=== PATIENT | male | born 1980 ===

== ENCOUNTER 2016-11-20 15:41 | Emergency (ER) | payer OTHER ==
[2016-11-20 15:51] VITALS: TEMP 98; O2SAT 100
[2016-11-20] MEDS ORDERED: Sodium Chloride 0.9% 1,000 ML IV ONE (16:05)
--- NOTE | 2016-11-20 16:06 | C.PDOC ---
History Of Present Illness Patient is a 36 year old male who presents to the ER with a complaint of a sharp right flank pain that began 2 hours [employer]. Patient reports having hematuria , 1 episode of nausea and vomiting. Patient admits to having kidney stones in the past. Denies dysuria or fever. Time Seen by Provider: 11/20/16 15:53 Chief Complaint (Nursing): Abdominal Pain History Per: Patient History/Exam Limitations: no limitations Onset/Duration Of Symptoms: Hrs (2) Current Symptoms Are (Timing): Still Present Location Of Pain/Discomfort: Other (Right flank) Radiation Of Pain To:: None Quality Of Discomfort: Unable To Describe Associated Symptoms: Nausea, Vomiting, Urinary Symptoms ((+) Hematuria. (-) Dysuria.). denies: Fever Exacerbating Factors: None Alleviating Factors: None Recent travel outside of the [place]: No Past Medical History Reviewed: Historical Data, Nursing Documentation, Vital Signs Vital Signs: Last Vital Signs Temp 98.0 F 11/20/16 15:45 Pulse 80 11/20/16 17:47 Resp 16 11/20/16 17:47 BP 110/75 11/20/16 17:47 Pulse Ox 100 11/20/16 18:18 - Medical History PMH: No Chronic Diseases Surgical History: No Surg Hx Family History: States: Unknown Family Hx - Social History Hx Alcohol Use: Yes Hx Substance Use: No - Immunization History Hx Tetanus Toxoid Vaccination: (unk) Hx Influenza Vaccination: Yes Hx Pneumococcal Vaccination: No Review Of Systems Except As Marked, All Systems Reviewed And Found Negative. Constitutional: Negative for: Fever Gastrointestinal: Positive for: Nausea, Vomiting Genitourinary: Positive for: Hematuria. Negative for: Dysuria Musculoskeletal: Positive for: Back Pain (Right flank) Physical Exam - Physical Exam Appears: Non-toxic, No Acute Distress Skin: Normal Color, Warm, Dry Head: Atraumatic, Normacephalic Oral Mucosa: Moist Chest: Symmetrical, No Tenderness Cardiovascular: Rhythm Regular, No Murmur Respiratory: Normal Breath Sounds, No Rales, No Rhonchi, No Wheezing Gastrointestinal/Abdominal: Bowel Sounds, Soft, Tenderness (Right sided), No Distention, No Guarding Back: CVA Tenderness (Right), Other (Right flank tenderness) Extremity: Normal ROM Neurological/Psych: Oriented x3, Normal Speech, Normal Cognition ED Course And Treatment - Laboratory Results Result Diagrams: 11/20/16 16:11 11/20/16 16:11 Lab Interpretation: Abnormal (leukocytosis, hyperglycemia) O2 Sat by Pulse Oximetry: 100 (Room air) Pulse Ox Interpretation: Normal - CT Scan/US CT abd/pel Other Rad Studies (CT/US): Read By Radiologist, Radiology Report Reviewed CT/US Interpretation: PROCEDURE: CT Abdomen and Pelvis without intravenous contrast. HISTORY: right flank pain. COMPARISON: None. TECHNIQUE: Without contrast.. Contrast Dose: 0. Radiation dose: Total exam DLP = 268.77 mGy-cm. This CT exam was performed using one or more of the following dose reduction techniques: Automated exposure control, adjustment of the mA and/or kV according to patient size, and/or use of iterative reconstruction technique. FINDINGS: LOWER THORAX: Unremarkable. LIVER: Unremarkable. No gross lesion or ductal dilatation. GALLBLADDER AND BILE DUCTS: Unremarkable. PANCREAS: Unremarkable. No gross lesion or ductal dilatation. SPLEEN: Unremarkable. ADRENALS: Unremarkable. No mass. KIDNEYS AND URETERS: Mild right hydroureteronephrosis. Mild right periureteric stranding. 4 mm calculus at right ureterovesical junction. No left hydronephrosis or hydroureter. 2 mm nonobstructing right upper pole renal calculus. 5 mm nonobstructing left upper pole renal calculus. No renal mass. VASCULATURE: Unremarkable. No aortic aneurysm. BOWEL: Unremarkable. No obstruction. No gross mural thickening. APPENDIX: Unremarkable. Normal appendix. PERITONEUM: Unremarkable. No free fluid. No free air. LYMPH NODES: Unremarkable. No enlarged lymph nodes. BLADDER: Nondistended. REPRODUCTIVE: Normal prostate. BONES: No acute fracture. OTHER FINDINGS: None. IMPRESSION: 4 mm obstructing calculus at right ureterovesical junction with mild right hydroureteronephrosis. Small nonobstructing calculus in the upper pole of each kidney. Mild fatty infiltration of the liver. No other significant abnormality. Progress Note: Urine culture and CT abd/pel ordered. Cipro, flomax and IV fluids administered. Reassessment Condition: Improved Disposition Counseled Patient/Family Regarding: Studies Performed, Diagnosis, Need For Followup, Rx Given - Disposition Referrals: Blayne Velazquez MD [Staff Provider] - Nicky Cox MD [Staff Provider] - Disposition: HOME/ ROUTINE Disposition Time: 17:57 Condition: STABLE Additional Instructions: FOLLOW UP WITH UROLOGIST DR. VELAZQUEZ IN 1-2 DAYS FOR RE-EVALUATION. STRAIN ALL URINE. IF SYMPTOMS GET WORSE OR ANY NEW CONCERNING SYMPTOMS DEVELOP RETURN TO ED. Prescriptions: Ciprofloxacin [Cipro] 1 tab PO BID #10 tab Tamsulosin [Flomax] 0.4 mg PO DAILY #3 cap Oxycodone HCl/Acetaminophen [Oxycodone-Acetaminophen 5-325] 1 each PO QID PRN # 12 tablet PRN Reason: Pain, Severe (8-10) Instructions: Kidney Stones (ED) Forms: General Discharge Instructions - Clinical Impression Clinical Impression: Kidney stone on right side - Scribe Statement The provider has reviewed the documentation as recorded by the Scribe Hiren Hernandez All medical record entries made by the Ryleyibe were at my direction and personally dictated by me. I have reviewed the chart and agree that the record accurately reflects my personal performance of the history, physical exam, medical decision making, and the department course for this patient. I have also personally directed, reviewed, and agree with the discharge instructions and disposition.
[2016-11-20 16:14] LABS: BASO % 0.3 % (0.0-2.0); EOS % 0.2 % (0.0-4.0); HEMATOCRIT 41.9 % (35.0-51.0); LYMPH # 0.8 K/uL (1.0-4.3); LYMPH % 5.9 % (20.0-40.0); MEAN CELL VOLUME 85.5 fL (80.0-94.0); MEAN CORPUSCULAR HEMOGLOBIN 29.1 pg (27.0-31.0); MEAN PLATELET VOLUME 7.9 fL (7.2-11.7); MONO # 0.5 K/uL (0.0-0.8); MONO % 3.3 % (0.0-10.0); PLATELET COUNT 270 K/uL (130-400); RED CELL DISTRIBUTION WIDTH 12.5 % (11.5-14.5); WHITE BLOOD COUNT 14.3 K/uL (4.8-10.8)
[2016-11-20 16:19] LABS: RBC URINE 4516 /hpf (0-3); URINE BACTERIA OCC (<OCC); URINE BILIRUBIN NEGATIVE (NEGATIVE); URINE BLOOD 3+ (NEGATIVE); URINE GLUCOSE (UA) NORMAL (Normal); URINE KETONE NEGATIVE (NEGATIVE); URINE LEUKOCYTE ESTERASE NEG Leu/uL (Negative); URINE PROTEIN 2+ mg/dL (NEGATIVE); URINE UROBILINOGEN NORMAL mg/dL (0.2-1.0)
[2016-11-20 16:27] LABS: CHLORIDE 99 mmol/L (98-107); POTASSIUM 4.5 mmol/L (3.6-5.2); SODIUM 138 mmol/L (132-148)
[2016-11-20 16:29] LABS: BILIRUBIN,TOTAL 1.4 mg/dL (0.2-1.3); GFR AFRICAN-AMERICAN > 60
[2016-11-20 16:30] LABS: ALB/GLOB RATIO 1.1 (1.0-2.1); ALKALINE PHOSPHATASE 66 U/L (38-126); ALT/SGPT 37 U/L (21-72); AST/SGOT 31 U/L (17-59); BLOOD UREA NITROGEN 12 mg/dL (9-20); CALCIUM 9.4 mg/dl (8.6-10.4); CARBON DIOXIDE 27 mmol/L (22-30); GLUCOSE,RANDOM 230 mg/dL (75-110); TOTAL PROTEIN 8.2 g/dL (6.3-8.3)
[2016-11-20 16:32] LABS: URINE COLOR YELLOW (YELLOW)
[2016-11-20 16:48] LABS: NEUTROPHIL 93 % (50-75); TOTAL CELLS COUNTED 100
--- NOTE | 2016-11-20 17:14 | CT ---
PROCEDURE: CT Abdomen and Pelvis without intravenous contrast HISTORY: right flank pain COMPARISON: None. TECHNIQUE: Without contrast.. Contrast Dose: 0 Radiation dose: Total exam DLP = 268.77 mGy-cm. This CT exam was performed using one or more of the following dose reduction techniques: Automated exposure control, adjustment of the mA and/or kV according to patient size, and/or use of iterative reconstruction technique. FINDINGS: LOWER THORAX: Unremarkable. LIVER: Unremarkable. No gross lesion or ductal dilatation. GALLBLADDER AND BILE DUCTS: Unremarkable. PANCREAS: Unremarkable. No gross lesion or ductal dilatation. SPLEEN: Unremarkable. ADRENALS: Unremarkable. No mass. KIDNEYS AND URETERS: Mild right hydroureteronephrosis. Mild right periureteric stranding. 4 mm calculus at right ureterovesical junction. No left hydronephrosis or hydroureter. 2 mm nonobstructing right upper pole renal calculus. 5 mm nonobstructing left upper pole renal calculus. No renal mass. VASCULATURE: Unremarkable. No aortic aneurysm. BOWEL: Unremarkable. No obstruction. No gross mural thickening. APPENDIX: Unremarkable. Normal appendix. PERITONEUM: Unremarkable. No free fluid. No free air. LYMPH NODES: Unremarkable. No enlarged lymph nodes. BLADDER: Nondistended REPRODUCTIVE: Normal prostate BONES: No acute fracture. OTHER FINDINGS: None. IMPRESSION: 4 mm obstructing calculus at right ureterovesical junction with mild right hydroureteronephrosis. Small nonobstructing calculus in the upper pole of each kidney. Mild fatty infiltration of the liver. No other significant abnormality.
[2016-11-20 17:48] VITALS: BP 110/75; PULSE 80; RESP 16
== END 2016-11-20 18:27 | disposition home or self-care (01) ==
LOC: C.ER 15:41
DX: N13.2 Hydronephrosis with renal and ureteral calculous obstruction (principal); R31.9 Hematuria, unspecified
CPT/HCPCS: 74176; 80053; 81001; 83690; 85025; 87086; 99285; J7040

== ENCOUNTER 2017-05-19 13:28 | Emergency (ER) | payer OTHER ==
[2017-05-19 13:36] VITALS: RESP 20; TEMP 98.6
[2017-05-19] MEDS ORDERED: Albuterol-Ipratrop 3 mg / 0.5 (3 ml) UD IH STA (13:43)
--- NOTE | 2017-05-19 13:43 | C.PDOC ---
History Of Present Illness COUGH, CHEST TIGHTNESS SOB SINCE LAST NIGHT. INTERMIT. BETTER W COLD AIR. STARTED ON AUGMENTIN YESTERDAY FOR SINUSITIS. NO FEVER, HO ASTHMA. NO CP. EXAM MILD DIST NONTOXIC HEENT +NASAL JASPREET NO RHINORRHEA LUNGS CTA B/L NO W/R/R +TACHYPNEA CV RRR REMAINDER NEG Time Seen by Provider: 05/19/17 13:35 Chief Complaint (Nursing): Cough, Cold, Congestion History Per: Patient History/Exam Limitations: no limitations Onset/Duration Of Symptoms: Sudden Onset (Last night) Past Medical History Reviewed: Historical Data, Nursing Documentation, Vital Signs Vital Signs: Last Vital Signs Temp 98.6 F 05/19/17 13:34 Pulse 111 H 05/19/17 13:34 Resp 20 05/19/17 13:34 BP 121/80 05/19/17 13:34 Pulse Ox 98 05/19/17 14:02 Family History: States: No Known Family Hx - Social History Hx Alcohol Use: Yes Hx Substance Use: No - Immunization History Hx Tetanus Toxoid Vaccination: (unk) Hx Influenza Vaccination: Yes Hx Pneumococcal Vaccination: No Review Of Systems Except As Marked, All Systems Reviewed And Found Negative. Constitutional: Negative for: Fever, Chills ENT: Negative for: Throat Pain Cardiovascular: Positive for: Other ((+) Chest tightness) Respiratory: Positive for: Cough, Shortness of Breath Gastrointestinal: Negative for: Nausea, Vomiting Physical Exam - Physical Exam Appears: Non-toxic, In Acute Distress (Mild) Skin: Warm, Dry, No Rash Head: Atraumatic, Normacephalic Eye(s): bilateral: Normal Inspection, PERRL, EOMI Ear(s): Bilateral: Normal Nose: Other ((+) Nasal congestion (-) Rhinorrhea) Oral Mucosa: Moist Throat: Normal, No Erythema, No Exudate, No Drooling Neck: Normal, Normal ROM, Supple Cardiovascular: Rhythm Regular, No Murmur Respiratory: Normal Breath Sounds, No Rales, No Rhonchi, No Stridor, No Wheezing , Other ((+) Tachypnea) Gastrointestinal/Abdominal: Normal Exam, Soft, No Tenderness, No Guarding, No Rebound Extremity: Normal ROM, No Swelling Neurological/Psych: Oriented x3, Normal Speech, Normal Motor, Normal Sensation ED Course And Treatment O2 Sat by Pulse Oximetry: 98 (RA) Pulse Ox Interpretation: Normal - Radiology CXR: Interpreted by Me CXR Interpretation: Yes: No Acute Disease Reevaluation Time: 14:20 Reassessment Condition: Improved Medical Decision Making Medical Decision Making: PLAN: * CXR * Albuterol IH * Clotilde Best PO Disposition Counseled Patient/Family Regarding: Studies Performed, Diagnosis, Need For Followup, Rx Given - Disposition Referrals: YOUR,PMD [Other] Disposition: HOME/ ROUTINE Disposition Time: 14:20 Condition: IMPROVED Prescriptions: Albuterol HFA [Ventolin HFA 90 mcg/actuation (8 g)] 1 puff IH Q4 #1 inhaler Instructions: Upper Respiratory Infection (ED) Forms: tydy (Arabic) - Clinical Impression Clinical Impression: Upper respiratory infection - Scribe Statement The provider has reviewed the documentation as recorded by the Miah Amos Provider Attestation: All medical record entries made by the Scribe were at my direction and personally dictated by me. I have reviewed the chart and agree that the record accurately reflects my personal performance of the history, physical exam, medical decision making, and the department course for this patient. I have also personally directed, reviewed, and agree with the discharge instructions and disposition.
[2017-05-19] MEDS ORDERED: Albuterol-Ipratrop 3 mg / 0.5 (3 ml) UD ONE (14:00)
[2017-05-19 14:36] VITALS: BP 121/72; PULSE 95; O2SAT 99
== END 2017-05-19 14:36 | disposition home or self-care (01) ==
LOC: C.ER 13:28
DX: J06.9 Acute upper respiratory infection, unspecified (principal)